=== PATIENT | male | born 1995 | race Caucasian/White ===

== ENCOUNTER → 2023-06-16 | Outpatient (REF) | payer OTHER ==
[~2023-06-16] MED LIST: ASCORBIC ACID500 MG PO; Calcium Carbonate PO; Docusate Sodium PO; LOSARTAN-HCTZ1 EACH PO; MAGOX 400400 MG PO; METFORMIN HCL500 M1 PO; MULTI-VITAMIN1 EACH PO; Multivitamins/Minerals PO; TOPROL XL25 MG PO; ZINC SULFATE50 MG PO; Zinc Sulfate PO
== END ==
LOC: WCC 10:17
PROVIDERS: ATTEND Plastic Surgery
DX: T81.89XA Other complications of procedures, not elsewhere classified, initial encounter (principal)

== ENCOUNTER → 2023-06-18 | Outpatient (REF) | payer OTHER | LOC: WCC 11:13 | PROVIDERS: ATTEND Plastic Surgery | DX: S31.000D Unspecified open wound of lower back and pelvis without penetration into retroperitoneum, subsequent encounter (principal) ==

== ENCOUNTER → 2023-06-21 | Outpatient (REF) | payer OTHER | LOC: WCC 11:00 | PROVIDERS: ATTEND Plastic Surgery | DX: S31.000D Unspecified open wound of lower back and pelvis without penetration into retroperitoneum, subsequent encounter (principal) ==

== ENCOUNTER → 2023-07-05 | Outpatient (REF) | payer OTHER | LOC: WCC 12:27 | PROVIDERS: ATTEND Plastic Surgery | DX: S31.000D Unspecified open wound of lower back and pelvis without penetration into retroperitoneum, subsequent encounter (principal) ==

== ENCOUNTER → 2023-07-07 | Outpatient (REF) | payer OTHER | LOC: WCC 11:44 | PROVIDERS: ATTEND Plastic Surgery | DX: S31.000D Unspecified open wound of lower back and pelvis without penetration into retroperitoneum, subsequent encounter (principal) ==

== ENCOUNTER → 2023-07-09 | Outpatient (REF) | payer OTHER | LOC: WCC 11:57 | PROVIDERS: ATTEND Plastic Surgery | DX: S31.000D Unspecified open wound of lower back and pelvis without penetration into retroperitoneum, subsequent encounter (principal) ==

== ENCOUNTER 2024-06-24 08:49 | Emergency (ER) | payer OTHER ==
[~2024-06-24] VITALS: Ht 172.7 cm; Wt 176.9 kg
[2024-06-24 08:55] VITALS: TEMP 97.8
[2024-06-24 09:30] LABS: BASOPHILS # (AUTO) 0.1 (0.0-0.1); BASOPHILS % 0.4 % (0.0-1.0); EOSINOPHILS # (AUTO) 0.1 (0.0-0.4); EOSINOPHILS % 0.7 % (0.0-6.0); HEMATOCRIT 45.4 % (38.2-49.6); HEMOGLOBIN 15.3 g/dL (14.0-18.0); LYMPHOCYTES # (AUTO) 1.8 (1.0-3.2); MEAN CORPUSCULAR HEMOGLOBIN 30.8 pg (28-32); MEAN CORPUSCULAR HGB CONC 33.7 g/dL (31-35); MEAN CORPUSCULAR VOLUME 91.5 fL (81-99); MONOCYTES # (AUTO) 0.9 (0.2-0.8); MONOCYTES % 5.2 % (4.4-11.3); NEUTROPHILS # (AUTO) 14.6 (2.1-6.9); NEUTROPHILS % 83.2 % (38.7-80.0); PLATELET COUNT 315 x10e3/uL (140-360); RED BLOOD COUNT 4.96 x10e6/uL (4.3-5.7); WHITE BLOOD COUNT 17.55 x10e3/uL (4.8-10.8)
[2024-06-24 09:52] LABS: INR 0.99; PARTIAL THROMBOPLASTIN TIME 28.6 seconds (23.8-35.5); PROTHROMBIN TIME 13.7 seconds (11.9-14.5)
[2024-06-24] MEDS: SODIUM CHLORIDE 0.9% 1000ML 1,000 ML IV STA (09:56)
[2024-06-24] MEDS: KETOROLAC TROMETHAMINE 30 MG/ML VIAL IV STA (09:56)
[2024-06-24] MEDS: ONDANSETRON HCL INJ 2MG/ML 2ML 2 MG/ML VIAL IV STA ×2 (09:57→11:41)
[2024-06-24 09:58] LABS: ALBUMIN/GLOBULIN RATIO 1.1 (0.8-2.0); ANION GAP 17.9 mmol/L (8-16); BILIRUBIN,TOTAL 0.7 mg/dL (0.2-1.2); CALCIUM 9.7 mg/dL (8.4-10.2); CREATININE, SERUM 1.21 mg/dL (0.72-1.25); MAGNESIUM 1.7 MG/DL (1.3-2.1); POTASSIUM 3.9 mmol/L (3.5-5.1); TOTAL PROTEIN 7.7 g/dL (6.5-8.1)
[2024-06-24 10:32] LABS: BILIRUBIN,URINE NEGATIVE (NEGATIVE); CLARITY,URINE SL CLOUDY (CLEAR); COLOR,URINE YELLOW (YELLOW); GLUCOSE, URINE NEGATIVE (NEGATIVE); KETONES,URINE NEGATIVE (NEGATIVE); LEUKOCYTE ESTERASE ,URINE NEGATIVE (NEGATIVE); NITRITE,URINE NEGATIVE (NEGATIVE); PH,URINE 7 (5 - 7); PROTEIN,URINE DIPSTICK 2+ (NEGATIVE); URINE UROBILINOGEN 0.2 mg/dL (0.2 - 1)
[2024-06-24 10:45] LABS: BACTERIA,URINE FEW /HPF; EPITHELIAL CELLS,URINE FEW /LPF; RBC,URINE 21-50 /HPF (0-5)
[2024-06-24] MEDS ORDERED: ONDANSETRON ODT4 MG PO (11:21)
[2024-06-24] MEDS ORDERED: CEFDINIR300 MG PO (11:21)
[2024-06-24] MEDS ORDERED: HYDROCODON-ACE1 EA11 PO (11:21)
[2024-06-24] MEDS ORDERED: FLOMAX0.4 MG PO (11:21)
[2024-06-24] MEDS ORDERED: KETOROLAC TROME10 MG PO (12:33)
[2024-06-24 12:38] VITALS: PULSE 72; RESP 19; O2SAT 99
== END 2024-06-24 12:40 | disposition home or self-care (01) ==
LOC: ER 09:18
DX: R11.2 Nausea with vomiting, unspecified (principal); N20.0 Calculus of kidney; R10.32 Left lower quadrant pain; K76.0 Fatty (change of) liver, not elsewhere classified; I10 Essential (primary) hypertension; J45.909 Unspecified asthma, uncomplicated
CPT/HCPCS: 36415; 74176; 80053; 81001; 83735; 85025; 85610; 85730; 99284; J1885; J2405; J2470; J7030

== ENCOUNTER 2024-06-29 09:40 | Emergency (ER) | payer OTHER ==
[~2024-06-29] VITALS: Ht 172.7 cm; Wt 176.9 kg
[~2024-06-29 09:40] MED LIST changes: +CEFDINIR300 MG PO; +FLOMAX0.4 MG PO; +HYDROCODON-ACE1 EA11 PO; +KETOROLAC TROME10 MG PO; +ONDANSETRON ODT4 MG PO
[2024-06-29 09:50] VITALS: PULSE 84; RESP 18; TEMP 97.7; O2SAT 98
[2024-06-29 10:58] LABS: BASOPHILS # (AUTO) 0.1 (0.0-0.1); BASOPHILS % 0.5 % (0.0-1.0); EOSINOPHILS # (AUTO) 0.3 (0.0-0.4); EOSINOPHILS % 2.1 % (0.0-6.0); HEMATOCRIT 45.1 % (38.2-49.6); LYMPHOCYTES % 14.2 % (18.0-39.1); MEAN CORPUSCULAR HEMOGLOBIN 30.6 pg (28-32); MEAN CORPUSCULAR HGB CONC 33.3 g/dL (31-35); MONOCYTES # (AUTO) 0.9 (0.2-0.8); MONOCYTES % 6.3 % (4.4-11.3); NEUTROPHILS # (AUTO) 10.9 (2.1-6.9); NEUTROPHILS % 76.5 % (38.7-80.0); PLATELET COUNT 293 x10e3/uL (140-360); WHITE BLOOD COUNT 14.22 x10e3/uL (4.8-10.8)
[2024-06-29 11:14] LABS: INR 0.94; PROTHROMBIN TIME 13.2 seconds (11.9-14.5)
[2024-06-29 11:15] LABS: PARTIAL THROMBOPLASTIN TIME 31.2 seconds (23.8-35.5)
[2024-06-29 11:38] LABS: CLARITY,URINE CLEAR (CLEAR); COLOR,URINE YELLOW (YELLOW)
[2024-06-29 11:39] LABS: GLUCOSE, URINE NEGATIVE (NEGATIVE); LEUKOCYTE ESTERASE ,URINE NEGATIVE (NEGATIVE); NITRITE,URINE NEGATIVE (NEGATIVE); PH,URINE 5.5 (5 - 7); PROTEIN,URINE DIPSTICK NEGATIVE (NEGATIVE)
[2024-06-29 11:40] LABS: BILIRUBIN,URINE NEGATIVE (NEGATIVE); KETONES,URINE NEGATIVE (NEGATIVE); URINE UROBILINOGEN 0.2 mg/dL (0.2 - 1)
[2024-06-29 12:02] LABS: BACTERIA,URINE RARE /HPF; EPITHELIAL CELLS,URINE RARE /LPF; WBC,URINE (MAN) 0-5 /HPF (0-5)
[2024-06-29 12:30] LABS: ALBUMIN 3.7 g/dL (3.5-5.0); ANION GAP 16.1 mmol/L (8-16); BILIRUBIN,TOTAL 1.1 mg/dL (0.2-1.2); CALCIUM 9.3 mg/dL (8.4-10.2); CREATININE, SERUM 1.56 mg/dL (0.72-1.25); POTASSIUM 4.1 mmol/L (3.5-5.1); TOTAL PROTEIN 7.4 g/dL (6.5-8.1)
[2024-06-29] MEDS ORDERED: ULTRAM 50MG50 MG PO (12:56)
[2024-06-29] MEDS: ONDANSETRON HCL INJ 2MG/ML 2ML 2 MG/ML VIAL IV STA (14:15)
[2024-06-29] MEDS: KETOROLAC TROMETHAMINE 30 MG/ML VIAL IV STA (14:15)
[2024-06-29] MEDS: SODIUM CHLORIDE 0.9% 1000ML 1,000 ML IV STA (14:15)
== END 2024-06-29 14:19 | disposition home or self-care (01) ==
LOC: ER 09:50
DX: R10.9 Unspecified abdominal pain (principal); N13.2 Hydronephrosis with renal and ureteral calculous obstruction; I10 Essential (primary) hypertension; J45.909 Unspecified asthma, uncomplicated; K42.9 Umbilical hernia without obstruction or gangrene; K76.0 Fatty (change of) liver, not elsewhere classified
CPT/HCPCS: 36415; 74176; 80053; 81001; 85025; 85610; 85730; 87086; 99284